=== PATIENT | male | born 1965 | race Caucasian/White ===

== ENCOUNTER 2017-05-09 19:20 | Emergency (ER) | payer SELFPAY ==
[2017-05-09] MEDS ORDERED: DILAUDID INJ ONE (19:31)
[2017-05-09] MEDS ORDERED: DILAUDID INJ IVP ONE (19:32)
[2017-05-09 19:36] VITALS: BMI 23.0
--- NOTE | 2017-05-09 19:37 | DR.EXTPAIN ---
HPI - Time seen Time seen: 19:30 - HPI Comment HPI Comment: Luis twisted his left foot and fractured his left ankle. - Complaint/Symptoms Chief Complaint Doctor Comments: As above PMH - PMH Past Medical History: COPD, Hypertension Past Surgical History: Yes Surgical History: Ortho Surgery - Family History Family Medical History: Diabetes Mellitus, Cancer, Hypertension - Social History Do you use any recreational Drugs:: No ROS - Review of Systems Eyes: No Symptoms Reported ENTM: No Symptoms Reported Respiratoy: No Symptoms Reported Cardiovascular: No Symptoms Reported Gastrointestinal/Abdominal: No Symptoms Reported Genitourinary: No Symptoms Reported Neurological: No Symptoms Reported Musculoskeletal: No Symptoms Reported Integumentary: No Symptoms Reported Hematologic/Lymphatic: No Symptoms Reported Endocrine: No Symptoms Reported Psychiatric: No Symptoms Reported All Other Systems: Reviewed and Negative PE - Vital Signs Vitals: Temperature 97.6 F Pulse Rate 77 Respiratory Rate 18 Blood Pressure 149/77 O2 Sat by Pulse Oximetry 100 - General General Appearance: Alert, In No Apparent Distress - Head Head Exam: Normal Inspection, Atraumatic - Eyes Eye exam: Normal Appearance, PERRL, EOMI - ENT ENT Exam: Normal Exam - Neck Neck Exam: Normal Inspection, Full ROM - Chest Chest Inspection: Normal Inspection - Respiratory Respiratory Exam: Normal Lung Sounds Bilat Respiratory Exam: Bilateral Clear to Auscultation - Cardiovascular Cardiovascular Exam: Regular Rate, Normal Rhythm - Abdominal Exam Abdominal Exam: Normal Inspection Abdominal Tenderness: negative: RUQ, RLQ, LUQ, LLQ, Epigastrium, Suprapubic, Diffuse, Mild, Moderate, Severe, Other - Extremities Extremities Exam: Joint Swelling (LLE) - Upper Extremities Shoulder Exam: Normal Inspection Arm Exam: Normal Inspection Elbow Exam: Normal Inspection Forearm Exam: Normal Inspection Hand Exam: Normal Inspection Neuromotor Exam: Normal Exam Neurosensory Exam: Normal Exam Hand Tendon Exam: Flexor Digitorium Profundus (Location) Upper Ext. Vascular Exam: Capillary Refill - Lower Extremities Hip/Pelvis Exam: Normal Inspection Upper Leg Exam: Normal Inspection, Full ROM Knee Exam: Normal Inspection Lower Leg Exam: Normal Inspection Ankle Exam: Normal Inspection Foot/Toe Exam: Normal Inspection Neurovascular/Tendon Exam: Normal Capillary Refill Gait Exam: Not Tested/Not Observed - Back Back Exam: Normal Inspection, Full ROM - Neurological Neurological Exam: Alert, Oriented X3, CN II-XII Intact - Psychiatric Psychiatric Exam: Normal Affect Course - Treatment Treatment: Under anesthesia fracture was realigned and ortho glass spling applied. ROR - Labs Reviewed Laboratory Results Reviewed?: Yes (Post reduction:Reduced of fracture fragments are in good alignment) - XRAY XRAY Interpreted by: Radiologist (There is a posterior dislocation at the ankle joint. The talus is located posterior and lateral relative to the articular surface of the tibia. There is eversion of the foot. There is a comminuted fracture of the disatl diaphysis of the fibula. The lateral malleolus is displaced laterally along with the talus. There is a comminuted fracture of the medial malleolus. The distal aspect of the medial malleolus is laterally displaced along with the talus. There is a posterior malleolar fracture which is comminuted. There is extensive soft tissue edema. Impression: There is a trauma malleolar fracture of the ankle as well as a posterior lateral dislocation of the talus and eversion of the foot.) - Diagnosis Discharge Problem: Dislocation of ankle, left, closed Qualifiers: Encounter type: initial encounter Qualified Code(s): S93.05XA - Dislocation of left ankle joint, initial encounter - Discharge Plan Condition: Stable - Follow ups/Referrals Follow ups/Referrals: NFD,None [Primary Care Provider] - 3 days - Instructions
--- NOTE | 2017-05-09 20:06 | RAD ---
EXAM: Left Lower Extremity X-ray INDICATION: Ankle pain COMPARISION: No comparison TECHNIQUE: PA and Lat, 2 view FINDINGS: The trauma malleolar fracture dislocation at the ankle is described on the ankle x-ray. The proximal to mid tibia and fibula are intact. IMPRESSION: See ankle x-ray for description of the trauma malleolar fracture dislocation at the ankle joint. No proximal fracture or dislocation. Reported By:
--- NOTE | 2017-05-09 20:06 | RAD ---
EXAM: Left ankle x-ray INDICATION: Ankle pain, fall COMPARISION: No priors for comparison TECHNIQUE: AP, lateral, and oblique, three views FINDINGS: There is a posterior dislocation at the ankle joint. The talus is located posterior and lateral rela tive to the articular surface of the tibia. There is eversion of the foot. There is a comminuted fra cture of the distal diaphysis of the fibula. The lateral malleolus is displaced laterally along with the talus. There is a comminuted fracture of the medial malleolus. The distal aspect of the medial malleolus is laterally displaced along with the talus. There is a posterior malleolar fracture which is comminuted. There is extensive soft tissue edema. IMPRESSION: There is a trauma malleolar fracture of the ankle as well as a posterior lateral dislocation of the talus and eversion of the foot. Reported By:
[2017-05-09] MEDS ORDERED: DIPRIVAN VIAL 20 ML ONE ×2 (20:43→20:50)
[2017-05-09] MEDS ORDERED: NS 1000 ML 1,000 ML ONE (20:45)
[2017-05-09] MEDS ORDERED: NS 1000 ML 1,000 ML IV ONE (20:45)
--- NOTE | 2017-05-09 21:14 | RAD ---
EXAM: Left ankle x-ray INDICATION: Postreduction COMPARISION: Exam performed earlier on the same day TECHNIQUE: AP and lateral , 2 views FINDINGS: The ankle dislocation has been reduced. The fracture fragments of the trauma malleolar fracture are aligned. There is soft tissue swelling around the ankle. IMPRESSION: The ankle dislocation has been reduced of the fracture fragments are in anatomic alignment. Reported By:
[2017-05-09 21:26] VITALS: BP 141/67
[2017-05-09] MEDS ORDERED: NORCO 7.5/325 MG TAB PO ONE (21:27)
[2017-05-09] MEDS ORDERED: NORCO 7.5/325 MG TAB ONE (21:30)
== END 2017-05-09 21:50 | disposition home or self-care (01) ==
LOC: ER 19:20
PROC: 0SSG3ZZ Reposition Left Ankle Joint, Percutaneous Approach (ICD-10-PCS; principal; 2017-05-09)
DX: S93.05XA Dislocation of left ankle joint, initial encounter (principal); W19.XXXA Unspecified fall, initial encounter; Y92.9 Unspecified place or not applicable
CPT/HCPCS: 27842; 29515; 73590; 73610; 96365; 96374; 99283; A4222; J3490

== ENCOUNTER → 2017-05-14 | Outpatient (CLI) | payer OTHER ==
[2017-05-09 21:26] VITALS: BP 141/67
[2017-05-14 14:46] LABS: BASOPHILS # (AUTO) 0.1 X10^3/uL (0.0-0.1); BASOPHILS % (AUTO) 0.8 % (0.2-1.0); EOSINOPHILS # (AUTO) 0.8 x10^3/uL (0.0-0.2); EOSINOPHILS % (AUTO) 8.7 % (0.9-2.9); HEMATOCRIT 37.8 % (42.0-54.0); HEMOGLOBIN 12.8 g/dL (13.5-18.0); LYMPHOCYTES # (AUTO) 2.2 X10^3/uL (1.3-2.9); LYMPHOCYTES % (AUTO) 24.8 % (21.0-51.0); MEAN CORPUSCULAR HEMOGLOBIN 30.4 pg (27.0-34.0); MEAN CORPUSCULAR HGB CONC 33.9 g/dL (33.0-35.0); MEAN CORPUSCULAR VOLUME 89.6 fL (80.0-100.0); MEAN PLATELET VOLUME 8.8 fL (7.4-11.0); MONOCYTES # (AUTO) 1.1 x10^3/uL (0.3-0.8); MONOCYTES % (AUTO) 11.8 % (0.0-13.0); NEUTROPHILS # (AUTO) 4.9 x10^3/uL (2.2-4.8); NEUTROPHILS % (AUTO) 53.9 % (42.0-75.0); PLATELET COUNT 334 X10^3/uL (150.0-450.0); RED BLOOD COUNT 4.22 X10^6/uL (4.7-6.0); RED CELL DISTRIBUTION WIDTH 13.3 % (11.6-16.5)
[2017-05-14 14:59] LABS: ALANINE AMINOTRANSFERASE 82 Units/L (12-78); ALKALINE PHOSPHATASE 104 Units/L (46-116); ASPARTATE AMINO TRANSFERASE 89 Units/L (15-37); BLOOD UREA NITROGEN 17 mg/dL (7-18); CALCIUM 8.1 mg/dL (8.5-10.1); CARBON DIOXIDE 30.8 mmol/L (21-32); CHLORIDE 104 mmol/L (98-107); COR CA(FOR HYPOALB) 8.9 mg/dL (8.5-10.1); GLUCOSE 96 mg/dL (65-99); SODIUM 141 mmol/L (136-145); TOTAL PROTEIN 7.6 g/dL (6.4-8.2); eGFR BLACK RACES > 60 (>60); eGFR NON BLACK RACES > 60 (>60)
[2017-05-14 15:03] LABS: BILIRUBIN,URINE NEGATIVE (NEGATIVE); BLOOD/HEMOGLOBIN,URINE 1+ (NEGATIVE); GLUCOSE, URINE NEGATIVE (NEGATIVE); KETONES,URINE NEGATIVE (NEGATIVE); LEUKOCYTE ESTERASE ,URINE 1+ (NEGATIVE); NITRITES,URINE NEGATIVE (NEGATIVE); PROTEIN,URINE 2+ (NEGATIVE); UROBILINOGEN,URINE NORMAL (NORMAL)
[2017-05-14 15:24] LABS: APPEARANCE,URINE SLIGHTLY HAZY (CLEAR); COLOR,URINE YELLOW (YELLOW)
[2017-05-14 15:25] LABS: BACTERIA,URINE NEGATIVE /HPF (NEGATIVE); RBC,URINE RARE /HPF (NEGATIVE); SQUAMOUS EPITHELIAL CELL,UR FEW /HPF (NEGATIVE)
--- NOTE | 2017-05-14 15:25 | RAD ---
Chest, two views Indication: Preoperative evaluation for ankle surgery Comparison: None Findings: The cardiac silhouette is normal in size. Streaky bibasilar opacities likely reflect atele ctasis. No focal consolidation, effusion or pneumothorax is identified. Osseous thorax is unremarkab le. Impression: No acute cardiopulmonary abnormality. Reported By:
[2017-05-14 15:29] LABS: ERYTHROCYTE SEDIMENTATION RATE 25 MM/HOUR (0-15)
== END ==
LOC: LAB 14:04
PROVIDERS: ATTEND Orthopaedic Surgery
DX: Z01.818 Encounter for other preprocedural examination (principal); Z79.899 Other long term (current) drug therapy; Z11.8 Encounter for screening for other infectious and parasitic diseases; Z01.811 Encounter for preprocedural respiratory examination; Z01.810 Encounter for preprocedural cardiovascular examination; S82.852A Displaced trimalleolar fracture of left lower leg, initial encounter for closed fracture; X58.XXXA Exposure to other specified factors, initial encounter; B95.7 Other staphylococcus as the cause of diseases classified elsewhere
CPT/HCPCS: 36415; 71020; 80053; 81001; 85025; 85652; 86140; 87641; 93005; 93010

== ENCOUNTER 2017-05-17 07:32 | Day surgery (SDC) | payer OTHER ==
[~2017-05-17 07:32] MED LIST: D5 LR 1000 ML 1,000 ML IV ONE; MARCAINE 0.25% WITH EPI IJ ONE; XYLOCAINE 1 % (PLAIN) ONE
[2017-05-17] MEDS: ANCEF VIAL 1 GM ONE ×2 (08:08→08:30)
[2017-05-17] MEDS: NS 50 ML IV + SPIKE MINIBAG* 50 ML IV ONE ×2 (08:09→08:30)
[2017-05-17] MEDS: BACTROBAN OINT ONE ×2 (08:09→08:57)
[2017-05-17] MEDS ORDERED: NS IRRIGATION 1000 ML 1,000 ML with BACITRACIN VIAL 50,000 UNT IR ONE ×4 (08:10)
[2017-05-17] MEDS ORDERED: FENTANYL INJ 250 mcg ONE (08:14)
[2017-05-17] MEDS ORDERED: REGLAN INJ 10 MG VIAL IVP PRN (11:06)
[2017-05-17] MEDS ORDERED: PHENERGAN INJ 25 MG IVP PRN (11:06)
[2017-05-17] MEDS ORDERED: BENADRYL INJ 50 MG VIAL IVP PRN (11:06)
[2017-05-17] MEDS ORDERED: ZOFRAN INJ 4 MG VIAL IVP PRN ×2 (11:06→11:18)
[2017-05-17] MEDS ORDERED: PERCOCET TAB 5/325 MG PO PRN (11:18)
[2017-05-17] MEDS: DILAUDID INJ IVP PRN ×2 (11:26→11:31)
--- NOTE | 2017-05-17 11:30 | RAD ---
HISTORY: ORIF Study: Left ankle three views Comparison: May 09, 2017 Findings: Patient is status post open reduction and internal fixation of a medial malleolar fracture with 2 or thopedic screws and a distal fibular fracture with a plate and 8 screws . There is an additional scr ew present overlying the 5th coal from the tops in the fibular plate. It overlie a fracture of the l ateral aspect of the distal talus. Position and alignment of the medial tibial an fibular fractures are anatomic. There is slight separation of the fracture fragments from the lateral aspect of the ti prakash. IMPRESSION: As above Reported By:
[2017-05-17] MEDS ORDERED: NORCO 5/325 MG TAB ONE (11:43)
[2017-05-17 12:44] VITALS: BP 155/94
[2017-05-17] MEDS ORDERED: SUPRANE IN ONE (15:43)
[2017-05-17] MEDS ORDERED: DIPRIVAN VIAL ONE (15:43)
[2017-05-17] MEDS ORDERED: ZOFRAN INJ 4 MG VIAL ONE (15:43)
[2017-05-17] MEDS ORDERED: VERSED ONE (15:43)
[2017-05-17] MEDS ORDERED: XYLOCAINE 2 % (PLAIN) ONE (15:43)
== END 2017-05-17 12:29 | disposition home or self-care (01) ==
LOC: SURG1 07:32
PROVIDERS: ATTEND Orthopaedic Surgery
PROC: 0QSK04Z Reposition Left Fibula with Internal Fixation Device, Open Approach (ICD-10-PCS; 2017-05-17)
PROC: 0QSH04Z Reposition Left Tibia with Internal Fixation Device, Open Approach (ICD-10-PCS; principal; 2017-05-17 08:30)
DX: S82.852A Displaced trimalleolar fracture of left lower leg, initial encounter for closed fracture (principal); X58.XXXA Exposure to other specified factors, initial encounter
CPT/HCPCS: 29125; 73610; 76000; A4222; S0020; J0690; J1170; J2001; J2250; J2405; J3010; J3490; J7120